=== PATIENT | female | born 1970 | race Caucasian/White ===

== ENCOUNTER → 2016-10-30 | Outpatient (CLI) | payer OTHER ==
[~2016-10-30] MED LIST: IOHEXOL 300 MG/ML 50 ML BTL (for RAD DIAG) I-UTERINE ONE
--- NOTE | 2016-10-30 13:24 | RADRPT ---
EXAM DATE/TIME: 10/30/2016 12:23 [place] COMPARISON: No previous studies available for comparison. INDICATIONS : Failed Essure procedure 0.6 minutes 4 CONTRAST: 10 cc Omnipaque 300 (iohexol) DEVICE: 5-F Catheter MEDICAL HISTORY : failed essure sterilization SURGICAL HISTORY : None. ENCOUNTER: Initial ACUITY: 1 day PAIN SCORE: 0/10 LOCATION: Bilateral pelivs FINDINGS: Preliminary film is normal. Technical aspect of the cervical cannulation injection of contrast perf ormed by the referring physician. Examination is performed under fluoroscopic control. The uterus is normal. No defects are appreciated. There is rapid filling of the fallopian tubes and passage into the pelvis bilaterally. CONCLUSION: 1. The fallopian tubes are patent bilaterally. Stone Diop MD on October 30, 2016 at 13:22 Board Certified Radiologist. This report was verified electronically.
== END ==
LOC: HRAD 11:45
PROVIDERS: ATTEND Obstetrics & Gynecology
DX: N85.6 Intrauterine synechiae (principal)
CPT/HCPCS: 58340; 74740; Q9967